=== PATIENT | female | born 1995 | race African-American/Black ===

== ENCOUNTER 2016-12-26 08:35 | Emergency (ER) | payer MEDICAID ==
[~2016-12-26] VITALS: Ht 157.5 cm; Wt 73.0 kg
[~2016-12-26 08:35] MED LIST: ONDA4TAB21 PO; PREN-88 PO
[2016-12-26 08:55] VITALS: BP 132/77
== END 2016-12-26 11:43 | disposition home or self-care (01) ==
LOC: ER 10:07
DX: B34.9 Viral infection, unspecified (principal); Z79.899 Other long term (current) drug therapy; G43.909 Migraine, unspecified, not intractable, without status migrainosus; J45.909 Unspecified asthma, uncomplicated; F12.10 Cannabis abuse, uncomplicated
CPT/HCPCS: 71010; 99283

== ENCOUNTER 2020-03-08 00:02 | Emergency (ER) | payer SELFPAY ==
[~2020-03-08] VITALS: Ht 157.5 cm; Wt 68.0 kg
[2020-03-08] MEDS ORDERED: ACETAMINOPHEN 325MG TABLET PO ONE (00:45)
[2020-03-08 02:36] VITALS: BP 120/70
== END 2020-03-08 02:38 | disposition home or self-care (01) ==
LOC: ER 00:02
DX: S89.92XA Unspecified injury of left lower leg, initial encounter (principal); J45.909 Unspecified asthma, uncomplicated; G43.909 Migraine, unspecified, not intractable, without status migrainosus; F12.10 Cannabis abuse, uncomplicated; Z79.899 Other long term (current) drug therapy; Z90.49 Acquired absence of other specified parts of digestive tract; W45.8XXA Other foreign body or object entering through skin, initial encounter; Y93.89 Activity, other specified; Y92.89 Other specified places as the place of occurrence of the external cause; Y99.8 Other external cause status
CPT/HCPCS: 73560; 99283